=== PATIENT | male | born 1980 | race Caucasian/White ===

== ENCOUNTER 2019-09-04 11:22 | Inpatient (IN) | payer BC ==
[~2019-09-04] VITALS: Ht 165.1 cm; Wt 56.1 kg
[2019-09-04] MEDS ORDERED: SODIUM CHLORIDE 0.9% 1,000ML IVBOLUS ONE (12:00)
[2019-09-04] MEDS ORDERED: DEXAMETHASONE 4 MG/ML, 1ML IV ONE (12:00)
[2019-09-04] MEDS ORDERED: ONDANSETRON 2MG/ML, 2ML IVPush ONE (12:00)
[2019-09-04] MEDS ORDERED: MORPHINE SULFATE 4 MG/ML, 1ML ONE ×2 (12:06→13:45)
[2019-09-04] MEDS ORDERED: DEXAMETHASONE 4 MG/ML, 5ML ONE (12:06)
[2019-09-04] MEDS ORDERED: ONDANSETRON 2MG/ML, 2ML ONE (12:06)
[2019-09-04] MEDS: MORPHINE SULFATE 4 MG/ML, 1ML IVPush PRN ×2 (12:12→13:49)
[2019-09-04] MEDS ORDERED: OMEPRAZOLE (12:15)
[2019-09-04] MEDS ORDERED: PENICILLIN (12:15)
--- NOTE | 2019-09-04 12:18 | NUR ---
PT C/O SORE THROAT FOR 2-3 DAYS AND WAS STARTED ON PCN ON MONDAY WITH NO RELIEF. PT SENT HERE FROM [facility]RG[facility]ARE TODAY AFTER HE REPORTED THEY TOLD HIM HE HAD ABSCESS. [place] MEDICATED ORDERED. PT UPDATED ON POC.
[2019-09-04 12:22] LABS: MEAN CORPUSCULAR HEMOGLOBIN 29.1 pg (27.5-34.5); MEAN CORPUSCULAR VOLUME 88.3 fL (81-97); MEAN PLATELET VOLUME 10.8 fL (7.4-10.4); PLATELET COUNT 121 x10^3/uL (130-400); RED CELL DISTRIBUTION WIDTH 12.9 % (9.4-14.8)
[2019-09-04 12:28] LABS: ALBUMIN 3.7 g/dL (3.4-5.0); ANION GAP 8 mmol/L (5-15); CALCIUM 9.3 mg/dL (8.5-10.1); CHLORIDE 104 mmol/L (98-107); CREATININE 0.79 mg/dL (0.7-1.3)
[2019-09-04 12:44] LABS: BASOPHILS % (AUTO) 0 % (0-1); EOSINOPHILS % (AUTO) 0 % (1-7); LYMPHOCYTES # (AUTO) 0.33 x10^3/uL (1-3.4); LYMPHOCYTES % (AUTO) 2 % (22-44); MD SCAN; MONOCYTES # (AUTO) 0.59 x10^3/uL (0.2-0.8); MONOCYTES % (AUTO) 4 % (2-9); NEUTROPHILS # (AUTO) 14.06 x10^3/uL (1.8-6.8); NEUTROPHILS % (AUTO) 94 % (42-75)
--- NOTE | 2019-09-04 12:52 | NUR ---
PT IN CT.
[2019-09-04] MEDS ORDERED: OMNIPAQUE 350 MG/ML, 100ML BOTTLE ONE (13:08)
--- NOTE | 2019-09-04 13:51 | NUR ---
PT REMEDICATED FOR PAIN. PT TO HAVE BLOOD CULTURES X 2 DONE PRIOR TO UNASYN. PT TO BE ADMITTED.
[2019-09-04] MEDS ORDERED: AMPICILLIN/SULBACTAM 3 GM in SODIUM CHLORIDE 0.9% 100 ML IV ONE (14:00)
[2019-09-04] MEDS ORDERED: LIDOCAINE 1%-EPI 1:100K, 20ML ONE (14:13)
[2019-09-04] MEDS ORDERED: BENZOCAINE AEROSOL SPRAY 20%, 60ML ONE (14:13)
[2019-09-04] MEDS ORDERED: BENZOCAINE AEROSOL SPRAY 20%, 60ML TP ONE (14:30)
[2019-09-04] MEDS ORDERED: LIDOCAINE 1%-EPI 1:100K, 20ML INFIL ONE (14:30)
--- NOTE | 2019-09-04 14:40 | NUR ---
ANTIBIOTICS STARTED AFTER BLOOD CULTURES X 2 WERE DRAWN. WAITING FOR ADMIT BED.
--- NOTE | 2019-09-04 15:30 | NUR ---
PT ATTEMPTING TO REST. STILL WAITING ON ENT TO DO I+D OF ABSCESS AND FOR ROOM ASSIGNMENT.
--- NOTE | 2019-09-04 16:28 | NUR ---
PT TESTED NEGATIVE FOR COVID. PT MADE AWARE AND ALSO PT'S MADE AWARE PER PT REQUEST SO SHE COULD VISIT.
--- NOTE | 2019-09-04 16:48 | NUR ---
DR. LUJAN AT BEDSIDE FOR ADMIT. WAITING FOR ENT STILL TO OPEN ABSCESS.
[2019-09-04] MEDS ORDERED: ONDANSETRON 2MG/ML, 2ML IVPush PRN (18:00)
[2019-09-04] MEDS ORDERED: hydrALAzine 20 MG/ML, 1ML IVPush PRN (18:00)
[2019-09-04] MEDS ORDERED: TRAZODONE 50MG TABLET PO PRN (18:00)
[2019-09-04] MEDS ORDERED: NS + 20MEQ KCL 1,000 ML IV ONE (18:01)
[2019-09-04] MEDS ORDERED: CLINDAMYCIN PMX 600MG/50ML 50 ML ONE (18:01)
[2019-09-04] MEDS: CLINDAMYCIN PMX 600MG/50ML 50 ML IV SCH ×2 (18:11→23:54)
[2019-09-04] MEDS ORDERED: DEXAMETHASONE 4 MG/ML, 1ML ONE (18:19)
[2019-09-04] MEDS ORDERED: ENOXAPARIN 40 MG/0.4 ML ONE (18:19)
[2019-09-04 18:21] LABS: HCT (SEDRATE) 41.9 % (39.2-51.8)
[2019-09-04] MEDS: ENOXAPARIN 40 MG/0.4 ML SQ SCH (18:23)
[2019-09-04] MEDS: DEXAMETHASONE 4 MG/ML, 1ML IVPush SCH ×2 (18:23→23:54)
--- NOTE | 2019-09-04 18:29 | NUR ---
PT MEDICATED PER MD ORDER. PT HAD DUPLICATE ORDER OF 10 MG DECARDRON AT 1999 THAT WAS CANCELLED PER JONATHAN TAYLOR. PT RECEIVED 10 MG DECADRON AT 1200 NOON AND 4 MG ABOUT 6 HOURS LATER. PT IN NAD. WATHCING TV AND SPEKAING MUCH CLEARER VERIFIED BY AT BEDSIDE.
[2019-09-04] MEDS: NS + 20MEQ KCL 1,000 ML IV SCH (19:07)
[2019-09-04] MEDS ORDERED: DEXAMETHASONE 4 MG/ML, 1ML IVPush ONE (20:00)
[2019-09-04 20:08] VITALS: BP 129/70
[2019-09-04] MEDS: morphine SULFATE 10 MG/ML, 1ML IVPush PRN (21:51)
[2019-09-05 01:03] VITALS: BP 107/62
[2019-09-05] MEDS: NS + 20MEQ KCL 1,000 ML IV SCH ×2 (04:51→15:42)
[2019-09-05 05:21] LABS: MEAN CORPUSCULAR HEMOGLOBIN 29.4 pg (27.5-34.5); MEAN CORPUSCULAR HGB CONC 33.6 g/dL (33.2-36.2); MEAN CORPUSCULAR VOLUME 87.6 fL (81-97); MEAN PLATELET VOLUME 11.7 fL (7.4-10.4); PLATELET COUNT 128 x10^3/uL (130-400); RED BLOOD COUNT 4.48 x10^6/uL (4.38-5.82); RED CELL DISTRIBUTION WIDTH 13.4 % (9.4-14.8)
[2019-09-05 05:29] LABS: ANION GAP 5 mmol/L (5-15); CALCIUM 8.4 mg/dL (8.5-10.1); CHLORIDE 109 mmol/L (98-107)
[2019-09-05 05:31] LABS: CREATININE 0.71 mg/dL (0.7-1.3)
[2019-09-05 05:52] LABS: BASOPHILS # (AUTO) 0.01 x10^3/uL (0-0.1); BASOPHILS % (AUTO) 0 % (0-1); EOSINOPHILS % (AUTO) 0 % (1-7); LYMPHOCYTES # (AUTO) 0.42 x10^3/uL (1-3.4); LYMPHOCYTES % (AUTO) 4 % (22-44); MD SCAN; MONOCYTES # (AUTO) 0.29 x10^3/uL (0.2-0.8); MONOCYTES % (AUTO) 3 % (2-9); NEUTROPHILS # (AUTO) 9.81 x10^3/uL (1.8-6.8); NEUTROPHILS % (AUTO) 93 % (42-75)
[2019-09-05] MEDS: DEXAMETHASONE 4 MG/ML, 1ML IVPush SCH ×3 (05:58→17:09)
[2019-09-05] MEDS: CLINDAMYCIN PMX 600MG/50ML 50 ML IV SCH ×2 (05:59→11:10)
[2019-09-05] MEDS ORDERED: PANTOPRAZOLE 40 MG IV IVPush SCH (07:30)
[2019-09-05] MEDS: morphine SULFATE 10 MG/ML, 1ML IVPush PRN (08:01)
[2019-09-05 08:22] VITALS: BP 128/79
[2019-09-05 15:59] VITALS: BP 116/73
[2019-09-05] MEDS ORDERED: METH4TAB2 PO (16:30)
[2019-09-05] MEDS ORDERED: AMOX1TAB64 PO (16:30)
[2019-09-05] MEDS ORDERED: ACET325T14 PO (16:32)
[2019-09-05] MEDS: ENOXAPARIN 40 MG/0.4 ML SQ SCH (17:09)
== END 2019-09-05 19:03 | disposition home or self-care (01) | DRG 854 ==
LOC: ED 14:43 → SUATTDRO 16:37 → EDIP 17:49 → 3N 19:41
PROVIDERS: ADMIT Hospitalist; ATTEND Hospitalist
PROC: 0C9PXZZ Drainage of Tonsils, External Approach (ICD-10-PCS; principal; 2019-09-04)
DX: A41.9 Sepsis, unspecified organism (principal); J36 Peritonsillar abscess; F12.90 Cannabis use, unspecified, uncomplicated; E87.6 Hypokalemia; K21.9 Gastro-esophageal reflux disease without esophagitis; Z03.818 Encounter for observation for suspected exposure to other biological agents ruled out
CPT/HCPCS: 36415; 70491; 80048; 82040; 83605; 84145; 85025; 85651; 87040; 87635; G0378; J0295; J1100; J1650; J2405; J3480; J3490; Q9967; C9113; J2270; J7030